=== PATIENT | female | born 1985 | race African-American/Black ===

== ENCOUNTER 2016-07-03 18:28 | Emergency (ER) | payer MEDICARE, OTHER ==
[~2016-07-03 18:28] MED LIST: SKELAXIN PO
[2016-07-03 19:44] LABS: URINE SOURCE CLEAN CATCH
[2016-07-03 19:48] LABS: URINE APPEARANCE CLEAR; URINE BILIRUBIN NEG (NEG); URINE BLOOD 2+ (NEG); URINE COLOR YELLOW; URINE GLUCOSE NEG (NEG); URINE KETONE TRACE (NEG); URINE LEUKOCYTE ESTERASE TRACE (NEG); URINE NITRATE NEG (NEG); URINE PROTEIN NEG (NEG); URINE SPECIFIC GRAVITY 1.028 (1.003-1.035)
[2016-07-03 19:51] LABS: CULTURE INDICATED? NO; U HYALINE CASTS AUWI 0-2 /[LPF]; URINE BACTERIA AUWI NEG (NEGATIVE); URINE SQUAMOUS EPITHELIAL CELL OCC /[HPF]; UWBCS1 AUWI 0-2 (0-5)
[2016-07-06 15:43] LABS: CHLAMYDIA TRACH Detected (Not Detected); N GONOR Detected (Not Detected)
== END 2016-07-03 21:25 | disposition home or self-care (01) ==
LOC: CFTX 18:28 → CED 18:28 → CFTX 20:09
PROVIDERS: Nurse Practitioner Family
DX: N72 Inflammatory disease of cervix uteri (principal); N93.9 Abnormal uterine and vaginal bleeding, unspecified; F20.9 Schizophrenia, unspecified; F17.210 Nicotine dependence, cigarettes, uncomplicated
CPT/HCPCS: 81003; 84703; 87491; 87591; 87808; 87905; 99284

== ENCOUNTER 2016-07-09 18:55 | Emergency (ER) | payer MEDICARE, OTHER | END 2016-07-09 20:05 | disposition home or self-care (01) | LOC: CFTX 18:55 → CED 18:55 → CFTX 19:41 | DX: A54.9 Gonococcal infection, unspecified (principal); A74.9 Chlamydial infection, unspecified; I10 Essential (primary) hypertension; F31.9 Bipolar disorder, unspecified; F20.9 Schizophrenia, unspecified; F17.210 Nicotine dependence, cigarettes, uncomplicated | CPT/HCPCS: 96372; 99283; J0696 ==

== ENCOUNTER 2016-07-21 22:06 | Emergency (ER) | payer MEDICARE, OTHER ==
--- NOTE | ~2016-07-21 | CT71 ---
[facility] A Service of [facility] RADIOLOGY TEXT RESULTS PATIENT: JONAS CAZARES LOCATION: [facility] : 89 UNIT #: [id number] AGE: [address]: Mellisa Bates MD SEX: F ORDER DR: [id number] [facility]. [place], [place] [address] [id number] MR#: [id number] Acc #: [id number] NAME: JONAS CAZARES : 1985 SEX: F STUDY DATE/TIME: 07/21/2016 23:54 UNIT: [facility] ROOM: STUDY DESCRIPTION: CT Head Wo Contrast Attending Physician: Mellisa Bates M.D. Ordering Physician: Mellisa Bates M.D. Primary Care Physician: Primary Care Physician No MEDICAL IMAGING REPORT This report is preliminary unless electronic signature is present EXAM CT scan of the brain without contrast INDICATIONS Left side headache since 10 a.m. yesterday. Numbness, tingling and dizziness. TECHNIQUE Unenhanced images were obtained through the brain. This CT exam was performed with one or more of the following radiation dose reduction techniques: Automatic exposure control, adjustment of mA and/or kV according to patient size, and iterative reconstruction. FINDINGS The ventricles and subarachnoid spaces are normal and there are no masses, extraaxial fluid collections or hemorrhage. The left maxillary sinus is filled with some high-density material suggesting chronic sinusitis. IMPRESSION The patient has some material in the left maxillary sinus that is slightly denser than most mucosal thickening and this could represent chronic sinusitis. Otherwise, the study is normal. Dictated by... Brett Morales M.D. THIS IS AN ELECTRONICALLY VERIFIED REPORT Brett Morales M.D. at 07/22/2016 1:55 PM FEL/psc TD: 07/22/2016 01:23 [facility] A Service [facility] RADIOLOGY TEXT RESULTS PATIENT: JONAS CAZARES LOCATION: [facility] : 89 UNIT #: [id number] AGE: [address]: Mellisa Bates MD SEX: F ORDER DR: JOB #: [id number] MEDICAL IMAGING REPORT Page 1 of 1 COPY
[2016-07-21 23:24] LABS: BASOPHIL% 0.4 % (0-2.5); EOSINOPHIL# 0.5 X10e3 (0-0.7); EOSINOPHIL% 5.3 % (0.0-7.0); HEMATOCRIT 36.9 % (35.0-45.0); HEMOGLOBIN 11.7 gm/dL (12.0-16.0); LYMPHOCYTE# 2.8 X10e3 (1.0-3.5); LYMPHOCYTE% 30.9 % (17.0-45.0); MEAN CELL VOLUME 82.8 FL (83-96); MEAN CORPUSCULAR HEMOGLOBIN 26.2 PG (28-34); MEAN CORPUSCULAR HGB CONC 31.7 g/dL (30-36); MEAN PLATELET VOLUME 9.6 FL (6.5-11.5); MONOCYTE# 0.8 X10e3 (0-1.0); MONOCYTE% 8.3 % (3.0-12.0); NEUTROPHIL% 55.1 % (40-75); PLATELET COUNT 199 X10e3 (140-420); RED BLOOD COUNT 4.46 X10e (3.90-5.30); RED CELL DISTRIBUTION WIDTH 16.6 % (11.0-15.5); WHITE BLOOD COUNT 9.1 X10e3 (4.0-10.5)
[2016-07-21 23:31] LABS: DIFF IND NO
[2016-07-21 23:47] LABS: BUN/CREATININE RATIO 13.75; CALCIUM SERUM 8.1 mg/dL (8.4-10.2); CREATININE SERUM 0.8 mg/dL (0.6-1.4); GLOM FILT RATE Estimated 115.6 mL/min (>60); POTASSIUM 3.5 mmol/L (3.5-5.1)
== END 2016-07-22 00:54 | disposition home or self-care (01) ==
LOC: CED 22:06
PROVIDERS: Student in an Organized Health Care Education/Training Program
DX: J32.9 Chronic sinusitis, unspecified (principal); I10 Essential (primary) hypertension; F20.9 Schizophrenia, unspecified
CPT/HCPCS: 36415; 70450; 80048; 84703; 85025; 96361; 96374; 96375; 99284; J1200; J1885; J2405

== ENCOUNTER 2016-08-14 14:35 | Emergency (ER) | payer MEDICARE, OTHER ==
--- NOTE | ~2016-08-14 | EKG ---
PATIENT: JONAS CAZARES UNIT #: [id number] Ventricular Rate: 86 BPM Atrial Rate: 86 BPM P-R Interval: 144 ms QRS Duration: 80 ms Q-T Interval: 376 ms QTC Calculation(Bezet): 449 ms P [place]: 36 degrees Calculated R [place]: 7 degrees Calculated T [place]: 33 degrees Diagnosis Line: Normal sinus rhythm Diagnosis Line: Minimal voltage criteria for LVH, may be normal Diagnosis Line: variant Diagnosis Line: Borderline ECG Diagnosis Line: No previous ECGs available Diagnosis Line: Confirmed by SASKIA JENNINGS MD ([id number]) on Diagnosis Line: 08/15/2016 5:13:16 PM INTERPRETING MD: [email or web address]
[2016-08-14 16:04] LABS: BASOPHIL# 0.1 X10e3 (0-0.3); BASOPHIL% 0.7 % (0-2.5); EOSINOPHIL# 0.5 X10e3 (0-0.7); EOSINOPHIL% 5.4 % (0.0-7.0); HEMATOCRIT 39.6 % (35.0-45.0); HEMOGLOBIN 12.7 gm/dL (12.0-16.0); LYMPHOCYTE# 2.7 X10e3 (1.0-3.5); LYMPHOCYTE% 28.5 % (17.0-45.0); MEAN CELL VOLUME 83.2 FL (83-96); MEAN CORPUSCULAR HEMOGLOBIN 26.6 PG (28-34); MEAN PLATELET VOLUME 9.2 FL (6.5-11.5); MONOCYTE# 0.7 X10e3 (0-1.0); MONOCYTE% 7.7 % (3.0-12.0); NEUTROPHIL# 5.5 X10e3 (1.5-7.1); NEUTROPHIL% 57.7 % (40-75); PLATELET COUNT 195 X10e3 (140-420); RED BLOOD COUNT 4.76 X10e (3.90-5.30); RED CELL DISTRIBUTION WIDTH 17.1 % (11.0-15.5); WHITE BLOOD COUNT 9.5 X10e3 (4.0-10.5)
[2016-08-14 16:09] LABS: DIFF IND NO
[2016-08-14 16:16] LABS: POC - CKMB 1.5 ng/mL (0.0-7.9); POC - TROPONIN <0.05 ng/mL (<=0.05)
[2016-08-14 16:28] LABS: CALCIUM SERUM 8.7 mg/dL (8.4-10.2); CREATININE SERUM 0.8 mg/dL (0.6-1.4); GLOM FILT RATE Estimated 115.6 mL/min (>60); POTASSIUM 4.1 mmol/L (3.5-5.1)
== END 2016-08-14 17:10 | disposition home or self-care (01) ==
LOC: CED 14:35
PROVIDERS: Emergency Medicine
DX: R07.89 Other chest pain (principal); F17.200 Nicotine dependence, unspecified, uncomplicated
CPT/HCPCS: 36415; 80048; 82553; 84484; 85025; 93005; 99285

== ENCOUNTER 2016-10-21 18:08 | Emergency (ER) | payer MEDICARE, OTHER ==
[~2016-10-21] VITALS: Ht 165.1 cm; Wt 160.6 kg
== END 2016-10-21 21:40 | disposition home or self-care (01) ==
LOC: CED 18:08
DX: G62.9 Polyneuropathy, unspecified (principal); F17.200 Nicotine dependence, unspecified, uncomplicated
CPT/HCPCS: 82947; 84703; 99283